=== PATIENT | male | born 1985 | race African-American/Black ===

== ENCOUNTER → 2017-03-28 | Outpatient (CLI) | payer OTHER ==
--- NOTE | 2017-03-28 11:31 | KCIC ---
EYE FOR FOREIGN BODY History: Previous eye injury, pre-MRI screening Comparison: None. Findings: 2 views of the orbits are submitted. No radiopaque metallic foreign body is identified in the region of orbits. Impression: 1. No radiopaque metallic foreign body is identified in the region of orbits. Electronically signed by: Den Randhawa MD (03/28/2017 11:28 AM) [email or web address]
--- NOTE | 2017-03-28 12:18 | KCIC ---
MRI Brain without contrast History: Chronic intractable headaches, previous traumatic brain injury 2009 Technique: Multiplanar, multisequential noncontrast MR imaging was performed of the brain. Contrast: None Comparison: None Findings: There is no evidence of an acute infarct or cytotoxic edema. The ventricles, sulci, and cisterns are within normal limits in size and configuration. There is no significant midline shift, mass effect, or focal abnormal extra-axial fluid collection. There is no significant signal abnormality of the brain parenchyma. There is preservation of the major intracranial flow-voids at the skull base. The mastoid air cells are overall aerated. The cerebellar tonsils are normal in location. There is no significant abnormality of the pineal gland or pituitary gland. There is more confluent opacification of the central and left aspect of the left frontal sinus extending to the frontal ethmoidal recess with internally complex signal features, hyperintense on the T1 sequence. There is patchy [id number] ethmoid air cell mucosal thickening greatest anteriorly on the left. There is likely mucus retention cyst in the anterior medial right maxillary sinus up to 1.9 cm. There is nonspecific heterogeneity of the marrow of the nonexpanded clivus, may be due to residual red marrow in a patient this age. Impression: 1. There is no significant intracranial abnormality. 2. There is more confluent opacification of the lateral aspect of the left frontal sinus with complex signal features, may be due to inspissated mucus or debris. There is other patchy ethmoid air cell mucosal thickening, also likely mucous retention cyst of the right maxillary sinus. Electronically signed by: Den Randhawa MD (03/28/2017 12:14 PM) [id number]
== END | disposition home or self-care (01) ==
LOC: KCIC MRI 11:10
PROVIDERS: ATTEND Physician Assistant Medical
DX: Z13.5 Encounter for screening for eye and ear disorders (principal); G44.221 Chronic tension-type headache, intractable
CPT/HCPCS: 70030; 70551